=== PATIENT | female | born 1960 | race African-American/Black ===

== ENCOUNTER 2020-09-11 18:03 | Emergency (ER) | payer SELFPAY | END 2020-09-11 19:00 | disposition home or self-care (01) | LOC: BURERS 18:03 | DX: S00.83XA Contusion of other part of head, initial encounter (principal); S00.511A Abrasion of lip, initial encounter; I10 Essential (primary) hypertension; Y04.2XXA Assault by strike against or bumped into by another person, initial encounter | CPT/HCPCS: 70450; 70486; 72125 ==